=== PATIENT | female | born 1995 | race Hispanic/Latino ===

== ENCOUNTER 2017-06-26 14:12 | Emergency (ER) | payer BC ==
[~2017-06-26] VITALS: Ht 162.6 cm; Wt 127.0 kg
[2017-06-26] MEDS ORDERED: PROVERA2.5 MG PO (14:36)
[2017-06-26] MEDS ORDERED: ROBAXIN-750750 MG PO (17:07)
== END 2017-06-26 17:20 | disposition home or self-care (01) ==
LOC: ED 14:12
DX: R10.32 Left lower quadrant pain (principal); Z79.899 Other long term (current) drug therapy; Z90.2 Acquired absence of lung [part of]
CPT/HCPCS: 76830; 76856; 80053; 81001; 84703; 85025; 99284

== ENCOUNTER 2022-10-03 15:06 | Emergency (ER) | payer OTHER ==
[~2022-10-03] VITALS: Ht 162.6 cm; Wt 98.4 kg
[~2022-10-03 15:06] MED LIST: ADVIL200 MG PO; PROVERA2.5 MG PO; ROBAXIN-750750 MG PO
[2022-10-03] MEDS ORDERED: CEPHALEXIN500 MG PO (15:19)
[2022-10-03] MEDS ORDERED: PENICILLIN V P500 MG PO (15:41)
== END 2022-10-03 15:56 | disposition home or self-care (01) ==
LOC: ED 15:06
DX: O99.612 Diseases of the digestive system complicating pregnancy, second trimester (principal); K04.7 Periapical abscess without sinus; Z3A.20 20 weeks gestation of pregnancy
CPT/HCPCS: 99282

== ENCOUNTER 2022-10-04 05:47 | Emergency (ER) | payer OTHER ==
[~2022-10-04] VITALS: Ht 162.6 cm; Wt 102.2 kg
[~2022-10-04 05:47] MED LIST changes: +CEPHALEXIN500 MG PO; +PENICILLIN V P500 MG PO
--- OUTSIDE RECORDS SUMMARY | 2022-10-04 05:56 | XMS ---
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 D[facility]a has no Care Guidelines for this patient. [place] VISIT COUNT (12 MO.) 1 [facility] 2 [facility] TOTAL 3 NOTE: Visits indicate total known visits. ED/UCC VISIT TRACKING (12 MO.) [facility]2022 05[facility] COMPLAINT: - N/V AND COLD 10/03/2022 15:07 [facility] [place] TYPE: Emergency COMPLAINT: - DENTAL PROBLEM 05/17/2022 21:45 [facility] TYPE: Emergency DIAGNOSES: 33346. miscarriage - 7wks 30729. Anemia, unspecified 15585. Pelvic and perineal pain 47130. Urinary tract infection, site not specified 61786. Abnormal uterine and vaginal bleeding, unspecified 15077. Complete or unspecified spontaneous without complication 39783. Hematuria, unspecified INPATIENT VISIT TRACKING (12 MO.) No inpatient visits to display in this time frame [id number]
== END 2022-10-04 12:40 | disposition home or self-care (01) ==
LOC: ED 05:47
DX: O99.012 Anemia complicating pregnancy, second trimester (principal); R50.9 Fever, unspecified; Z3A.20 20 weeks gestation of pregnancy; Z20.822 Contact with and (suspected) exposure to COVID-19; Z79.899 Other long term (current) drug therapy
CPT/HCPCS: 36415; 80053; 81003; 83605; 83690; 85025; 85060; 87502; 96361; 96365; 96366; 96375; 99284-25; A9270; C9803; J0696; J2405; J7030; Q0138; U0003

== ENCOUNTER 2023-01-16 22:43 | Inpatient (IN) | payer OTHER ==
--- OUTSIDE RECORDS SUMMARY | ~2023-01-16 | XMS | Continuity of Care Document ---
Demographics + + + | Address | [address] | | | [place] [address] | + + + | Preferred Language | Unknown | + + + | Marital Status | | + + + | Nondenominational Affiliation | Unknown | + + + | Race | Unknown | + + + | Ethnic Group | or | + + + Author + + + | Author | [facility] | + + + | Organization | [facility] | + + + | Address | [address] | | | [place] [address] | + + + | Phone | | + + + Care Team Providers + + + + | Care Community Mental Health Worker Name | Role | Phone | + + + + Unavailable | Unavailable | + + + + Unavailable | Unavailable | + + + + Unavailable | Unavailable | + + + + Allergies and Intolerances + + + + + + | date | description | facility | reaction | severity | + + + + + + | (no date) | No Known | [facility] | (no reaction) | (no severity) | | | Allergies | | | | + + + + + + Encounters No information. Functional Status No information. Immunizations No information. Medications + + + + | date | description | facility | + + + + | 2022-10-03 00:00 | MEDROXYPROGESTERONE | [facility] | | | ACETATE | | + + + + | 2022-10-04 00:00 | MEDROXYPROGESTERONE | [facility] | | | ACETATE | | + + + + | 2023-01-16 00:00 | MEDROXYPROGESTERONE | [facility] | | | ACETATE | | + + + + | 2017-06-26 00:00 | METHOCARBAMOL | [facility] | + + + + | 2017-06-26 00:00 | METHOCARBAMOL | [facility] | + + + + | 2022-10-03 00:00 | CEPHALEXIN | [facility] | + + + + | 2022-10-04 00:00 | CEPHALEXIN | [facility] | + + + + | 2023-01-16 00:00 | CEPHALEXIN | [facility] | + + + + | 2022-10-03 00:00 | PENICILLIN V POTASSIUM | [facility] | + + + + | 2022-10-03 00:00 | PENICILLIN V POTASSIUM | [facility] | + + + + Problems + + + + | date | description | facility | + + + + | 2017-06-26 00:00 | Abdominal pain | [facility] | + + + + | 2017-06-26 00:00 | Abdominal pain | [facility] | + + + + | 2020-08-05 00:00 | Patient left without being | [facility] | | | seen | | + + + + | 2020-08-05 00:00 | Patient left without being | [facility] | | | seen | | + + + + | 2022-05-14 14:00 | THREATENED | [facility] | + + + + | 2022-05-14 14:00 | ENCNTR FOR SUPRVSN OF | [facility] | | | NORMAL FIRST PREG, | | + + + + | 2022-05-14 14:00 | LESS THAN 8 WEEKS | [facility] | | | GESTATION OF | | + + + + | 2022-08-12 14:48 | ENCNTR FOR SUPRVSN OF | [facility] | | | NORMAL FIRST PREG, FIRST | | | | TRIMESTER | | + + + + | 2022-08-12 14:48 | 8 WEEKS GESTATION OF | [facility] | | | | | + + + + | 2022-08-12 14:48 | 12 WEEKS GESTATION OF | [facility] | | | | | + + + + | 2022-10-03 00:00 | Infection of tooth | [facility] | + + + + | 2022-10-03 00:00 | Infection of tooth | [facility] | + + + + | 2022-10-03 15:07 | PERIAPICAL ABSCESS WITHOUT | [facility] | | | SINUS | | + + + + | 2022-10-03 15:07 | OTHER SPECIFIED DISORDERS | [facility] | | | OF TEETH AND SUPPORTING | | | | STRUCTURES | | + + + + | 2022-10-03 15:07 | DISEASES OF THE DGSTV SYS | [facility] | | | COMP , SECOND T | | + + + + | 2022-10-03 15:07 | 20 WEEKS GESTATION OF | [facility] | | | | | + + + + | 2022-10-04 00:00 | 20 or more weeks gestation | [facility] | | | of | | + + + + | 2022-10-04 00:00 | Anemia affecting | [facility] | | | | | + + + + | 2022-10-04 00:00 | Anemia affecting | [facility] | | | | | + + + + | 2022-10-04 00:00 | Fever | [facility] | + + + + | 2022-10-04 00:00 | Fever | [facility] | + + + + | 2022-10-04 00:00 | 20 or more weeks gestation | [facility] | | | of | | + + + + | 2022-10-04 05:48 | ANEMIA COMPLICATING | [facility] | | | , SECOND TRIMESTER | | | | | | + + + + | 2022-10-04 05:48 | LEFT LOWER QUADRANT PAIN | [facility] | + + + + | 2022-10-04 05:48 | FEVER, UNSPECIFIED | [facility] | + + + + | 2022-10-04 05:48 | 20 WEEKS GESTATION OF | [facility] | | | | | + + + + | 2022-10-04 05:48 | 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) | [facility] | | | DRUG THERAPY | | + + + + | 2022-12-23 09:31 | CALCULUS OF GALLBLADDER | [facility] | | | W/O CHOLECYSTITIS W/O OBST | | + + + + | 2022-12-23 09:31 | UNSPECIFIED HYDRONEPHROSIS | [facility] | | | | | + + + + | 2022-12-23 09:31 | FALSE LABOR BEFORE 37 | [facility] | | | COMPLETED WEEKS OF GEST, | | | | SEC | | + + + + | 2022-12-23 09:31 | DISEASES OF THE DGSTV SYS | [facility] | | | COMP , SECOND T | | + + + + | 2022-12-23 09:31 | RIGHT UPPER QUADRANT PAIN | [facility] | + + + + | 2022-12-23 09:31 | 14 WEEKS GESTATION OF | [facility] | | | | | + + + + | 2023-01-04 15:29 | GESTATIONAL DIABETES | [facility] | | | MELLITUS IN , UNSP | | | | CONTROL | | + + + + | 2023-01-04 15:29 | 33 WEEKS GESTATION OF | [facility] | | | | | + + + + | 2023-01-13 14:11 | GESTATIONAL DIABETES IN | [facility] | | | , INSUL | | + + + + | 2023-01-13 14:11 | GESTATIONAL DIABETES IN | [facility] | | | , INSULIN | | | | CONTROLLED | | + + + + | 2023-01-13 15:00 | GESTATIONAL DIABETES IN | [facility] | | | , INSUL | | + + + + | 2023-01-16 00:00 | Encounter for medical | [facility] | | | screening examination | | + + + + Procedures No information. Results/Labs +--------+--------+ +---------+--------+---------+ | test | date | facility | value | unit | notes | +--------+--------+ +---------+--------+---------+ + + | Result panel 1 | + + + + + + + + + | | 2022-10-04 | [facility] | YELLOW | (missing) | (missing) | | (unavailable | [facility] | | | + + + + + + + + + | Result panel 2 | + + + + + + + + + | | 2022-10-04 | [facility] | SL CLOUDY | (missing) | (missing) | | (unavailable | [facility]07 [facility] | | | | + + + + + + + + + | Result panel 3 | + + + + + + + + + | | 2022-10-04 | [facility] | NEGATIVE | (missing) | (missing) | | (unavailable | [facility] | | | | + + + + + + + + + | Result panel 4 | + + + + + + + + + | | 2022-10-04 | [facility] | NEGATIVE | (missing) | (missing) | | (unavailable | [facility] | | | | + + + + + + + + + | Result panel 5 | + + + + + + + + + | | 2022-10-04 | [facility] | NEGATIVE | (missing) | (missing) | | (unavailable | [facility] | | | | + + + + + + + + + | Result panel 6 | + + + + + +---------+ + + | | 2022-10-04 | [facility] | 1.015 | (missing) | (missing) | | (unavailable | [facility] | | | | + + + +---------+ + + + + | Result panel 7 | + + + + + + + + + | | 2022-10-04 | [facility] | NEGATIVE | (missing) | (missing) | | (unavailable | [facility] | | | | + + + + + + + + + | Result panel 8 | + + + + + +-------+ + + | | 2022-10-04 | [facility] | 7.0 | (missing) | (missing) | | (unavailable | [facility] | | | | + + + +-------+ + + + + | Result panel 9 | + + + + + + + + + | | 2022-10-04 | [facility] | NEGATIVE | (missing) | (missing) | | (unavailable | [facility] | | | | + + + + + + + + + | Result panel 10 | + + + + + + + + + | | 2022-10-04 | [facility] | NORMAL | (missing) | (missing) | | (unavailable | [facility] | | | | + + + + + + + + + | Result panel 11 | + + + + + + + + + | | 2022-10-04 | [facility] | NEGATIVE | (missing) | (missing) | | (unavailable | [facility] | | | | + + + + + + + + + | Result panel 12 | + + + + + + + + + | | 2022-10-04 | [facility] | NEGATIVE | (missing) | (missing) | | (unavailable | [facility] | | | | + + + + + + + + + | Result panel 13 | + + + + + +-------+ + + | | 2022-10-04 | [facility] | 1.5 | (missing) | (missing) | | (unavailable | [facility]32:07 [facility] | | | | + + + +-------+ + + + + | Result panel 14 | + + + + + +--------+ + + | | 2022-10-04 | [facility] | 11.6 | (missing) | (missing) | | (unavailable | [facility]34[facility]07 [facility] | | | | + + + +--------+ + + + + | Result panel 15 | + + + + + +-------+ + + | | 2022-10-04 | [facility] | 246 | (missing) | (missing) | | (unavailable | [facility]34[facility]07 [facility] | | | | + + + +-------+ + + + + | Result panel 16 | + + + + + +--------+ + + | | 2022-10-04 | [facility] | 84.8 | (missing) | (missing) | | (unavailable | [facility]34[facility]07 [facility] | | | + + + +--------+ + + + + | Result panel 17 | + + + + + +-------+ + + | | 2022-10-04 | [facility] | 9.8 | (missing) | (missing) | | (unavailable | [facility] | | | | + + + +-------+ + + + + | Result panel 18 | + + + + + +-------+ + + | | 2022-10-04 | [facility] | 3.3 | (missing) | (missing) | | (unavailable | [facility] | | | | + + + +-------+ + + + + | Result panel 19 | + + + + + +-------+ + + | | 2022-10-04 | [facility] | 1.8 | (missing) | (missing) | | (unavailable | [facility] | | | | + + + +-------+ + + + + | Result panel 20 | + + + + + +-------+ + + | | 2022-10-04 | [facility] | 0.3 | (missing) | (missing) | | (unavailable | [facility] | | | | + + + +-------+ + + + + | Result panel 21 | + + + + + + + + + | | 2022-10-04 | [facility] | (missing) | (missing) | (missing) | | (unavailable | [facility]34[facility]07 [facility] | | | | + + + + + + + + + | Result panel 22 | + + + + + +------+---------+ + | | 2022-10-04 | [facility] | 95 | mg/dL | (missing) | | (unavailable | [facility] | | | | + + + +------+---------+ + + + | Result panel 23 | + + + + + +-----+---------+ + | | 2022-10-04 | [facility] | 8 | mg/dL | (missing) | | (unavailable | [facility]34[facility]07 [facility] | | | | + + + +-----+---------+ + + + | Result panel 24 | + + + + + +--------+ + + | | 2022-10-04 | [facility] | 4.54 | (missing) | (missing) | | (unavailable | [facility] | | | | + + + +--------+ + + + + | Result panel 25 | + + + + + +--------+---------+ + | | 2022-10-04 | [facility] | 0.57 | mg/dL | (missing) | | (unavailable [facility]07 [facility] | | | | + + + +--------+---------+ + + + | Result panel 26 | + + + + + +-------+ + + | | 2022-10-04 | [facility] | 126 | (missing) | (missing) | | (unavailable | [facility] | | | | + + + +-------+ + + + + | Result panel 27 | + + + + + +---------+ + + | | 2022-10-04 | [facility] | 14.03 | (missing) | (missing) | | (unavailable | [facility] | | | | + + + +---------+ + + + + | Result panel 28 | + + + + + +-------+ + + | | 2022-10-04 | [facility] | 135 | (missing) | (missing) | | (unavailable | [facility] | | | | + + + +-------+ + + + + | Result panel 29 | + + + + + +-------+ + + | | 2022-10-04 | [facility] | 3.8 | (missing) | (missing) | | (unavailable | [facility] | | | + + + +-------+ + + + + | Result panel 30 | + + + + + +------+ + + | | 2022-10-04 | [facility] | 99 | (missing) | (missing) | | (unavailable | [facility] | | | | + + + +------+ + + + + | Result panel 31 | + + + + + +------+ + + | | 2022-10-04 | [facility] | 26 | (missing) | (missing) | | (unavailable | [facility] | | | | + + + +------+ + + + + | Result panel 32 | + + + + + +--------+ + + | | 2022-10-04 | [facility] | 13.8 | (missing) | (missing) | | (unavailable | [facility] | | | + + + +--------+ + + + + | Result panel 33 | + + + + + +-------+---------+ + | | 2022-10-04 | [facility] | 8.4 | mg/dL | (missing) | | (unavailable | [facility] | | | + + + +-------+---------+ + + + | Result panel 34 | + + + + + +-------+ + + | | 2022-10-04 | [facility] | 7.3 | (missing) | (missing) | | (unavailable | [facility] | | | | + + + +-------+ + + + + | Result panel 35 | + + + + + +-------+ + + | | 2022-10-04 | [facility] | 8.9 | (missing) | (missing) | | (unavailable | [facility] | | | | + + + +-------+ + + + + | Result panel 36 | + + + + + +-------+ + + | | 2022-10-04 | [facility] | 2.8 | (missing) | (missing) | | (unavailable | [facility] | | | + + + +-------+ + + + + | Result panel 37 | + + + + + +-------+ + + | | 2022-10-04 | [facility] | 4.5 | (missing) | (missing) | | (unavailable | [facility] | | | + + + +-------+ + + + + | Result panel 38 | + + + + + +--------+ + + | | 2022-10-04 | [facility] | 0.62 | (missing) | (missing) | | (unavailable | [facility] | | | | + + + +--------+ + + + + | Result panel 39 | + + + + + +-------+ + + | | 2022-10-04 | [facility] | 0.3 | (missing) | (missing) | | (unavailable | [facility] | | | + + + +-------+ + + + + | Result panel 40 | + + + + + +------+ + + | | 2022-10-04 | [facility] | 16 | (missing) | (missing) | | (unavailable | [facility] | | | | + + + +------+ + + + + | Result panel 41 | + + + + + +------+ + + | | 2022-10-04 | [facility] | 16 | (missing) | (missing) | | (unavailable | [facility] | | | | + + + +------+ + + + + | Result panel 42 | + + + + + +------+ + + | | 2022-10-04 | [facility] | 56 | (missing) | (missing) | | (unavailable | [facility] | | | + + + +------+ + + + + | Result panel 43 | + + + + + +------+ + + | | 2022-10-04 | [facility] | 84 | (missing) | (missing) | | (unavailable | [facility] | | | + + + +------+ + + + + | Result panel 44 | + + + + + +--------+ + + | | 2022-10-04 | [facility] | 28.4 | (missing) | (missing) | | (unavailable | [facility] | | | + + + +--------+ + + + + | Result panel 45 | + + + + + +--------+ + + | | 2022-10-04 | [facility] | 62.7 | (missing) | (missing) | | (unavailable | [facility] | | | + + + +--------+ + + + + | Result panel 46 | + + + + + +--------+ + + | | 2022-10-04 | [facility] | 19.6 | (missing) | (missing) | | (unavailable | [facility] | | | + + + +--------+ + + + + | Result panel 47 | + + + + + +--------+ + + | | 2022-10-04 | [facility] | 31.3 | (missing) | (missing) | | (unavailable | [facility] | | | + + + +--------+ + + + + | Result panel 48 | + + + + + +--------+ + + | | 2022-10-04 | [facility] | 19.1 | (missing) | (missing) | | (unavailable | [facility] | | | | + + + +--------+ + + + + | Result panel 49 | + + + + + + + + + | | 2022-10-04 | [facility] | NEGATIVE | (missing) | (missing) | | (unavailable | [facility]45:07 [facility] | | | | + + + + + + + + + | Result panel 50 | + + + + + + + + + | | 2022-10-04 | [facility] | NEGATIVE | (missing) | (missing) | | (unavailable | [facility] | | | | + + + + + + + + + | Result panel 51 | + + + + + + + + + | | 2022-10-04 | [facility] | NEGATIVE | (missing) | (missing) | | (unavailable | [facility] | | | + + + + + + + + + | Result panel 52 | + + + + + + + + + | | 2022-10-04 | [facility] | NEGATIVE | (missing) | (missing) | | (unavailable | [facility] | | | | + + + + + + + Social History No information. Vital Signs + + + +---------+ | date | measurement | value | units | + + + +---------+ | 2022-10-03 00:00 | BMI | 37.2 | kg/m2 | + + + +---------+ | 2022-10-03 00:00 | BP_diastolic | 60 | mmHg | + + + +---------+ | 2022-10-03 00:00 | BP_systolic | 103 | mmHg | + + + +---------+ | 2022-10-03 00:00 | heart_rate | 88 | /min | + + + +---------+ | 2022-10-03 00:00 | height_metric | 162.56 | cm | + + + +---------+ | 2022-10-03 00:00 | height_standard | 64 | in | + + + +---------+ | 2022-10-03 00:00 | o2_saturation | 100 | % | + + + +---------+ | 2022-10-03 00:00 | respiration_rate | 18 | /min | + + + +---------+ | 2022-10-03 00:00 | temperature_metric | 37.22 | C | | | | | | + + + +---------+ | 2022-10-03 00:00 | | 99 | F | | | temperature_standar | | | | | d | | | + + + +---------+ | 2022-10-03 00:00 | weight_metric | 98.43 | kg | + + + +---------+ | 2022-10-03 00:00 | weight_standard | 217 | lb | + + + +---------+ | 2022-10-04 00:00 | BMI | 38.7 | kg/m2 | + + + +---------+ | 2022-10-04 00:00 | BP_diastolic | 78 | mmHg | + + + +---------+ | 2022-10-04 00:00 | BP_systolic | 112 | mmHg | + + + +---------+ | 2022-10-04 00:00 | heart_rate | 104 | /min | + + + +---------+ | 2022-10-04 00:00 | height_metric | 162.56 | cm | + + + +---------+ | 2022-10-04 00:00 | height_standard | 64 | in | + + + +---------+ | 2022-10-04 00:00 | o2_saturation | 100 | % | + + + +---------+ | 2022-10-04 00:00 | respiration_rate | 17 | /min | + + + +---------+ | 2022-10-04 00:00 | temperature_metric | 37.17 | C | | | | | | + + + +---------+ | 2022-10-04 00:00 | | 98.9 | F | | | temperature_standar | | | | | d | | | + + + +---------+ | 2022-10-04 00:00 | weight_metric | 102.2 | kg | + + + +---------+ | 2022-10-04 00:00 | weight_standard | 225.31 | lb | + + + +---------+ | 2023-01-16 00:00 | BMI | 45.3 | kg/m2 | + + + +---------+ | 2023-01-16 00:00 | BP_diastolic | 66 | mmHg | + + + +---------+ | 2023-01-16 00:00 | BP_systolic | 122 | mmHg | + + + +---------+ | 2023-01-16 00:00 | heart_rate | 136 | /min | + + + +---------+ | 2023-01-16 00:00 | height_metric | 162.56 | cm | + + + +---------+ | 2023-01-16 00:00 | height_standard | 64 | in | + + + +---------+ | 2023-01-16 00:00 | o2_saturation | 100 | % | + + + +---------+ | 2023-01-16 00:00 | respiration_rate | 20 | /min | + + + +---------+ | 2023-01-16 00:00 | temperature_metric | 37.17 | C | | | | | | + + + +---------+ | 2023-01-16 00:00 | | 98.9 | F | | | temperature_standar | | | | | d | | | + + + +---------+ | 2023-01-16 00:00 | weight_metric | 119.6 | kg | + + + +---------+ | 2023-01-16 00:00 | weight_standard | 263.67 | lb | + + + +---------+ | 2023-01-16 00:00 | weight_standard | 263.68 | lb | + + + +---------+"
--- NOTE | 2023-01-16 23:48 | NUR ---
COLLECTED COVID SAMPLE AND PERFORMED EKG
[2023-01-17 04:42] VITALS: BP 119/58
--- NOTE | 2023-01-17 13:19 | EKG ---
[facility] [address] [place], [place] [address] Signed Sinus tachycardia Otherwise normal ECG No previous ECGs available Confirmed by CAYETANO ARELLANO MD ([id number]) on 01/17/2023 1:19:24 PM Electronically Signed By: CAYETANO ARELLANO 01/17/23 1319 PATIENT NAME: JOSE JONES Electrocardiogram DATE OF : [birth year] PHYSICIAN: CAYETANO ARELLANO REPORT #: [id number] REPORT IS CONFIDENTIAL AND NOT TO BE RELEASED WITHOUT AUTHORIZATION
--- NOTE | 2023-01-18 18:57 | PR ---
[facility] [address] [place], [place] [address] Signed AP Progress Notes Datetime Report Generated by LISANDRO: 01/18/2023 18:57 Chief Complaint: Pyelonephritis HPI: Pt seen and examined. Doing well. Ambulating and tolerating diabetic diet. Blood sugars borderline control w/ diet alone. Pt w/ unconventional sleeping schedule and has a difficult time eating on a regular schedule. Pt reports she feels much better and is ready for discharge EGA: 35.0 PHYSICAL EXAM: [id number] General: Normal HEENT: Normal Neurologic: Normal Thyroid: Normal Cardiovascular: Normal Respiratory: Normal Breast: Not Done Back: Normal Abdomen: Normal Genitourinary Exam: Not Done Extremities: Normal DTRs: Normal Physical Exam Comments: No flank pain or uterine tenderness. Pt reports that she is feeling much better. Impression: IUP @ 35w1d Pyelonephritis GDM diet controlled Obesity Plan: Pt ready for discharge. Will give one additional dose of ceftriaxone priort to discharge as she will not be able to pickup her oral abx until tomorrow. Rx for Bactrim DS sent to pharmacy. Will complete 10 day course and then will resume nightly keflex prophylaxis. Continue regularly scheduled antepartum testing for GDM. F/U in 3 days w/ complete glucose logs. All questions answered in detail and to patient and partner's apparent satisfaction VITAL SIGNS: [id number] Vital Signs: Reviewed VS Notable Details: Last Tmax of 103.1 at 0855 on 01/17/23, maternal tachycardia EXAM: [id number] Dilatation: 0.0 Effacement: 0 *Electronically Signed* 01/18/23 KRISTEL FREDERICK) DO PATIENT NAME: JOSE JONES PROGRESS NOTE DATE OF : [birth year] PHYSICIAN: KRISTEL SUN DO (JD) RPT #: [id number] REPORT IS CONFIDENTIAL AND NOT TO BE RELEASED WITHOUT AUTHORIZATION [facility] [address] [place], [place] [address] Signed Station: -3 Contraction Comments: occasional to every 5-6 min MEMBRANES: [id number] FETUS A: [id number] FHR Baseline: 190 Variability: Moderate 6-25bpm Accelerations: 15X15 Deceleration: None FHR Category: Category II FHR Comments: No evidence of metabolic acidosis Gestation by US: 35.0 FETUS B: [id number] PROGRESS NOTES: [id number] Signing Physician: Kristel Sun DO Copies: ~ *Electronically Signed* 01/18/23 KRISTEL FREDERICK) DO PATIENT NAME: JOSE JONES PROGRESS NOTE DATE OF : 93 PHYSICIAN: KRISTEL SUN (JD) DO RPT #: [id number] REPORT IS CONFIDENTIAL AND NOT TO BE RELEASED WITHOUT AUTHORIZATION
== END 2023-01-18 20:00 | disposition home or self-care (01) | DRG 833 ==
LOC: FBCO 22:43 → FBC 01-17 01:53
PROVIDERS: ADMIT Obstetrics & Gynecology; ATTEND Obstetrics & Gynecology
DX: O23.03 Infections of kidney in pregnancy, third trimester (principal); O24.410 Gestational diabetes mellitus in pregnancy, diet controlled; O99.213 Obesity complicating pregnancy, third trimester; Z3A.35 35 weeks gestation of pregnancy; Z20.822 Contact with and (suspected) exposure to COVID-19
CPT/HCPCS: 36415; 59025; 76815; 81001; 85025; 87088; 87502; 93005; 93010; A9270; C9803; G0463; J0696; J2405; J7121; U0002

== ENCOUNTER 2023-02-05 11:48 | Inpatient (IN) | payer OTHER ==
[~2023-02-05] VITALS: Ht 162.6 cm; Wt 117.9 kg
--- OUTSIDE RECORDS SUMMARY | ~2023-02-05 | XMS | Continuity of Care Document ---
Demographics + + + | Address | [address] | | | [place] [address] | + + + | Preferred Language | Unknown | + + + | Marital Status | | + + + | Anabaptism Affiliation | Unknown | + + + | Race | Unknown | + + + | Ethnic Group | or | + + + Author + + + | Author | [employer] | + + + | Organization | [employer] | + + + | Address | [address] | | | [place] [address] | + + + | Phone | | + + + Care Team Providers + + + + | Care Repairer Recreational Vehicle Name | Role | Phone | + [...] + | (no date) | No Known Drug | [facility] | (no reaction) | (no severity) | | | Allergies | | | | + + + + + + Encounters No information. Functional Status No information. Immunizations No information. Medications + + + + | date | description | facility | + + + + | 2022-10-03 00:00 | MEDROXYPROGESTERONE | [facility] | | | ACETATE | | + + + + | 2022-10-04 00:00 | MEDROXYPROGESTERONE | [facility] | | | ACETATE | | + + + + | 2023-01-16 00:00 | MEDROXYPROGESTERONE | [facility] | | | ACETATE | | + + + + | 2023-01-18 00:00 | MEDROXYPROGESTERONE | [facility] | | | ACETATE | | + + + + | 2017-06-26 00:00 | METHOCARBAMOL | [facility] | + + + + | 2017-06-26 00:00 | METHOCARBAMOL | [facility] | + + + + | 2022-10-03 00:00 | CEPHALEXIN | [facility] | + + + + | 2022-10-04 00:00 | CEPHALEXIN | [facility] | + + + + | 2023-01-16 00:00 | CEPHALEXIN | [facility] | + + + + | 2023-01-18 00:00 | CEPHALEXIN | [facility] | + + + + | 2022-10-03 00:00 | PENICILLIN V POTASSIUM | [facility] | + + + + | 2022-10-03 00:00 | PENICILLIN V POTASSIUM | [facility] | + + + + Problems + + + + | date | description | facility | + + + + | 2017-06-26 00:00 | Abdominal pain | [facility] | + + + + | 2017-06-26 00:00 | Abdominal pain | [facility] | + + + + | 2020-08-05 00:00 | Patient left without being | [facility] | | | seen | | + + + + | 2020-08-05 00:00 | Patient left without being | [facility] | | | seen | | + [...] + | 2022-08-12 14:48 | ENCNTR FOR SHARON OF | [facility] | | | NORMAL [...] 2022-10-03 00:00 | Infection of tooth | [facility] | + + + + | 2022-10-03 00:00 | Infection of tooth | [facility] | + + + + | 2022-10-03 [...] | 20 or more weeks gestation | [facility] | | | of | | + + + + | 2022-10-04 00:00 | Anemia affecting | [facility] | | | | | + + + + | 2022-10-04 00:00 | Anemia affecting | [facility] | | | | | + + + + | 2022-10-04 00:00 | Fever | [facility] | + + + + | 2022-10-04 00:00 | Fever | [facility] | + + + + | 2022-10-04 00:00 | 20 or more weeks gestation | [facility] | | | of | | + [...] + + | 2022-10-04 05:48 | OTHER SHELTER (CURRENT) | [facility] | | | DRUG [...] 2023-01-16 00:00 | Encounter for medical | [facility] | | | screening examination | | + + + + | [...] 15 | + + + + + + [...] 18 | + + + + + +--------+ + + | | 2022-10-04 | [facility] | 28.4 | (missing) | (missing) | | (unavailable | [facility] | | | + + + +--------+ + + + + | Result panel 19 | + + + + + +--------+ + + | | 2022-10-04 | [facility] | 62.7 | (missing) | (missing) | | (unavailable | [facility] | | | | + + + +--------+ + + + + | Result panel 20 | + + + + + +--------+ + + | | 2022-10-04 | [facility] | 19.6 | (missing) | (missing) | | (unavailable | [facility] | | | | + + + +--------+ + + + + | Result panel 21 | + + + + + +--------+ + + | | 2022-10-04 | [facility] | 31.3 | (missing) | (missing) | | (unavailable | [facility] | | | | + + + +--------+ + + + + | Result panel 22 | + + + + + +--------+ + + | | 2022-10-04 | [facility] | 19.1 | (missing) | (missing) | | (unavailable | [facility] | | | | + + + +--------+ + + + + | Result panel 23 | + + + + + +-------+ + + | | 2022-10-04 | [facility] | 246 | (missing) | (missing) | | (unavailable | [facility] | | | | + + + +-------+ + + + + | Result panel 24 [...] 25 | + + + + + +-------+ + + | | 2022-10-04 | [facility] | 9.8 | (missing) | (missing) | | (unavailable | [facility] | | | | + + + +-------+ + + + + | Result panel 26 [...] 27 | + + + + + +-------+ [...] 29 | + + + + + +------+---------+ + | | 2022-10-04 | [facility] | 95 | mg/dL | (missing) | | (unavailable | [facility] | | | | + + + +------+---------+ + + + | Result panel 30 | + + + + + +-----+---------+ + | | 2022-10-04 | [facility] | 8 | mg/dL | (missing) | | (unavailable | [facility] | | | | + + + +-----+---------+ + + + | Result panel 31 | + + + + + +--------+---------+ + | | 2022-10-04 | [facility] | 0.57 | mg/dL | (missing) | | (unavailable | [facility] | | | | + + + +--------+---------+ + + + | Result panel 32 | + + + + + +-------+ + + | | 2022-10-04 | [facility] | 126 | (missing) | (missing) | | (unavailable | [facility] | | | | + + + +-------+ + + + + | Result panel 33 | + + + + + +---------+ + + | | 2022-10-04 | [facility] | 14.03 | (missing) | (missing) | | (unavailable | [facility] | | | | + + + +---------+ + + + + | Result panel 34 [...] 36 | + + + + + +------+ + + | | 2022-10-04 | [facility] | 99 | (missing) | (missing) | | (unavailable | [facility] | | | | + + + +------+ + + + + | Result panel 37 | + + + + + +------+ [...] 39 | + + + + + +-------+---------+ + | | 2022-10-04 | [facility] | 8.4 | mg/dL | (missing) | | (unavailable | [facility] | | | | + + + +-------+---------+ + + + | Result panel 40 | + + + + + +-------+ + + | | 2022-10-04 | [facility] | 7.3 | (missing) | (missing) | | (unavailable | [facility] | | | | + + + +-------+ + + + + | Result panel 41 | + + + + + +-------+ + + | | 2022-10-04 | [facility] | 2.8 | (missing) | (missing) | | (unavailable | [facility] | | | | + + + +-------+ + + + + | Result panel 42 | + + + + + +-------+ + + | | 2022-10-04 | [facility] | 4.5 | (missing) | (missing) | | (unavailable | [facility] | | | + + + +-------+ + + + + | Result panel 43 | + + + + + +--------+ + + | | 2022-10-04 | [facility] | 0.62 | (missing) | (missing) | | (unavailable | [facility] | | | | + + + +--------+ + + + + | Result panel 44 | + + + + + +-------+ + + | | 2022-10-04 | [facility] | 0.3 | (missing) | (missing) | | (unavailable | [facility] | | | + + + +-------+ + + + + | Result panel 45 | + + + + + +------+ + + | | 2022-10-04 | [facility] | 16 | (missing) | (missing) | | (unavailable | [facility] | | | + + + +------+ + + + + | Result panel 46 | + + + + + +------+ + + | | 2022-10-04 | [facility] | 16 | (missing) | (missing) | | (unavailable | [facility] | | | | + + + +------+ + + + + | Result panel 47 | + + + + + +------+ + + | | 2022-10-04 | [facility] | 56 | (missing) | (missing) | | (unavailable | [facility] | | | + + + +------+ + + + + | Result panel 48 | + + + + + +------+ [...] + + + + | Result panel 53 | + + + + + +--------+ + + | | 2023-01-16 | [facility] | 14.2 | (missing) | (missing) | | (unavailable | [facility] | | | + + + +--------+ + + + + | Result panel 54 | + + + + + +--------+ + + | | 2023-01-16 | [facility] | 78.4 | (missing) | (missing) | | (unavailable | [facility] | | | + + + +--------+ + + + + | Result panel 55 | + + + + + +--------+ + + | | 2023-01-16 | [facility] | 13.3 | (missing) | (missing) | | (unavailable | [facility] | | | + + + +--------+ + + + + | Result panel 56 | + + + + + +-------+ + + | | 2023-01-16 | [facility] | 6.7 | (missing) | (missing) | | (unavailable | [facility] | | | + + + +-------+ + + + + | Result panel 57 | + + + + + +-------+ + + | | 2023-01-16 | [facility] | 1.3 | (missing) | (missing) | | (unavailable | [facility] | | | + + + +-------+ + + + + | Result panel 58 | + + + + + +-------+ + + | | 2023-01-16 | [facility] | 0.3 | (missing) | (missing) | | (unavailable | [facility] | | | + + + +-------+ + + + + | Result panel 59 | + + + + + +--------+ + + | | 2023-01-16 | [facility] | 4.61 | (missing) | (missing) | | (unavailable | [facility] | | | + + + +--------+ + + + + | Result panel 60 | + + + + + +-------+ + + | | 2023-01-16 | [facility] | 9.7 | (missing) | (missing) | | (unavailable | [facility] | | | + + + +-------+ + + + + | Result panel 61 | + + + + + +--------+ + + | | 2023-01-16 | [facility] | 30.8 | (missing) | (missing) | | (unavailable | [facility] | | | + + + +--------+ + + + + | Result panel 62 | + + + + + +--------+ + + | | 2023-01-16 | [facility] | 66.7 | (missing) | (missing) | | (unavailable | [facility] | | | + + + +--------+ + + + + | Result panel 63 | + + + + + +--------+ + + | | 2023-01-16 | [facility] | 21.0 | (missing) | (missing) | | (unavailable | [facility] | | | + + + +--------+ + + + + | Result panel 64 | + + + + + +--------+ + + | | 2023-01-16 | [facility] | 31.5 | (missing) | (missing) | | (unavailable | [facility] | | | + + + +--------+ + + + + | Result panel 65 | + + + + + +--------+ + + | | 2023-01-16 | [facility] | 20.4 | (missing) | (missing) | | (unavailable | [facility] | | | + + + +--------+ + + + + | Result panel 66 | + + + + + +-------+ + + | | 2023-01-16 | [facility] | 228 | (missing) | (missing) | | (unavailable | [facility] | | | + + + +-------+ + + + + | Result panel 67 | + + + + + + + + + | | 2023-01-16 | [facility] | NEGATIVE | (missing) | (missing) | | (unavailable | [facility] | | | | + + + + + + + + + | Result panel 68 | + + + + + + + + + | | 2023-01-16 | [facility] | NEGATIVE | (missing) | (missing) | | (unavailable | [facility] | | | | + + + + + + + + + | Result panel 69 | + + + + + + + + + | | 2023-01-16 | [facility] | NEGATIVE | (missing) | (missing) | | (unavailable | [facility] | | | + + + + + + + + + | Result panel 70 | + + + + + + + + + | | 2023-01-16 | [facility] | NEGATIVE | (missing) | (missing) | | (unavailable | [facility] | | | + + + + + + + + + | Result panel 71 | + + + + + + + + + | | 2023-01-16 | [facility] | YELLOW | (missing) | (missing) | | (unavailable | [facility] | | | | + + + + + + + + + | Result panel 72 | + + + + + +---------+ + + | | 2023-01-16 | [facility] | CLEAR | (missing) | (missing) | | (unavailable | [facility] | | | | + + + +---------+ + + + + | Result panel 73 | + + + + + + + + + | | 2023-01-16 | [facility] | NEGATIVE | (missing) | (missing) | | (unavailable | [facility] | | | | + + + + + + + + + | Result panel 74 | + + + + + + + + + | | 2023-01-16 | [facility] | NEGATIVE | (missing) | (missing) | | (unavailable | [facility] | | | | + + + + + + + + + | Result panel 75 | + + + + + +---------+ + + | | 2023-01-16 | [facility] | TRACE | (missing) | (missing) | | (unavailable | [facility] | | | + + + +---------+ + + + + | Result panel 76 | + + + + + +---------+ + + | | 2023-01-16 | [facility] | 1.015 | (missing) | (missing) | | (unavailable | [facility] | | | + + + +---------+ + + + + | Result panel 77 | + + + + + + + + + | | 2023-01-16 | [facility] | TRACE-I | (missing) | (missing) | | (unavailable | [facility] | | | | + + + + + + + + + | Result panel 78 | + + + + + +-------+ + + | | 2023-01-16 | [facility] | 7.5 | (missing) | (missing) | | (unavailable | [facility] | | | + + + +-------+ + + + + | Result panel 79 | + + + + + + + + + | | 2023-01-16 | [facility] | NEGATIVE | (missing) | (missing) | | (unavailable | [facility] | | | + + + + + + + + + | Result panel 80 | + + + + + +-------+ + + | | 2023-01-16 | [facility] | 1.0 | (missing) | (missing) | | (unavailable | [facility] | | | + + + +-------+ + + + + | Result panel 81 | + + + + + + + + + | | 2023-01-16 | [facility] | NEGATIVE | (missing) | (missing) | | (unavailable | [facility] | | | + + + + + + + + + | Result panel 82 | + + + + + +---------+ + + | | 2023-01-16 | [facility] | SMALL | (missing) | (missing) | | (unavailable | [facility] | | | + + + +---------+ + + + + | Result panel 83 | + + + + + +-------+ + + | | 2023-01-16 | [facility] | 0-1 | (missing) | (missing) | | (unavailable | [facility] | | | + + + +-------+ + + + + | Result panel 84 | + + + + + +-------+ + + | | 2023-01-16 | [facility] | 2-3 | (missing) | (missing) | | (unavailable | [facility] | | | + + + +-------+ + + + + | Result panel 85 | + + + + + + + + + | | 2023-01-16 | [facility] | SQUAMOUS 1+ | (missing) | (missing) | | (unavailable | [facility] | | | + + + + + + + + + | Result panel 86 | + + + + + +------+ + + | | 2023-01-16 | [facility] | No | (missing) | (missing) | | (unavailable | [facility] | | | | + + + +------+ + + Social History No information. Vital [...] 263.68 | lb | + + + +---------+ | 2023-01-17 00:00 | BP_diastolic | 58 | mmHg | + + + +---------+ | 2023-01-17 00:00 | BP_systolic | 119 | mmHg | + + + +---------+ | 2023-01-17 00:00 | height_metric | 162.6 | cm | + + + +---------+ | 2023-01-17 00:00 | height_standard | 64.02 | in | + + + +---------+ | 2023-01-17 00:00 | temperature_metric | 38.33 | C | | | | | | + + + +---------+ | 2023-01-17 00:00 | | 101 | F | | | temperature_standar | | | | | d | | | + + + +---------+"
[2023-02-09 06:40] LABS: HEMATOCRIT 32.8 % (35.0-50.0); HEMOGLOBIN 10.4 g/dL (12.0-18.0); MCH 20.6 (27-36); MCHC 31.7 g/dl (30-36); MCV 65.1 fl (81-99); RBC 5.04 M/ul (4.3-5.7); RDW 20.1 (10.5-15.0)
[2023-02-09 06:46] LABS: AMPHETAMINES, UR NEGATIVE (NEGATIVE); BARBITURATES, UR NEGATIVE (NEGATIVE); BENZODIAZEPINES, UR NEGATIVE (NEGATIVE); BUPRENORPHINE,UR NEGATIVE (NEGATIVE); COCAINE, UR NEGATIVE (NEGATIVE); MARIJUANA (THC), UR NEGATIVE (NEGATIVE); MDMA, UR NEGATIVE (NEGATIVE); METHADONE, UR NEGATIVE (NEGATIVE); METHAMPHETAMINE, UR NEGATIVE (NEGATIVE); OPIATES, UR NEGATIVE (NEGATIVE); OXYCODONE, UR NEGATIVE (NEGATIVE); PHENCYCLIDINE, UR NEGATIVE (NEGATIVE); TRICYCLIC ANTIDEPRESSANT, UR NEGATIVE (NEGATIVE)
[2023-02-09 07:18] LABS: ABO O; ANTIBODY SCREEN NEGATIVE; RH POSITIVE
[2023-02-09 07:29] VITALS: BP 106/57
--- NOTE | 2023-02-09 10:04 | NUR ---
02/09/23 100 Rosa Brar 0942- PT ARRIVES TO RM 104 IN FBC FROM [place] A&O X4. PT REPORTS NO PAIN OR NAUSEA AT THIS TIME AND RESPIRATIONS ARE EVEN AND UNLABORED, NO SIGNS OF DISTRESS. PT ON SATS >90% PER CONT PULSE OX. DRAPERY ESTIMATOR AND AT BEDSIDE AT THIS TIME. SCD'S IN PLACE. MADISON DRAINING TO GRAVITY. IV SITE ON RFA INFUSING FLUIDS DIRECTED, SITE WNL.
[2023-02-09 10:09] VITALS: BP 122/61
[2023-02-10 05:24] LABS: HEMOGLOBIN 7.5 g/dL (12.0-18.0)
[2023-02-10 05:25] LABS: HEMATOCRIT 24.1 % (35.0-50.0); MCH 20.3 (27-36); MCV 65.4 fl (81-99); RBC 3.69 M/ul (4.3-5.7); RDW 20.1 (10.5-15.0)
--- NOTE | 2023-02-10 09:01 | PR ---
[facility] [address] [place], [place] [address] Signed PP Progress Notes Datetime Report Generated by CPN: 02/10/2023 09:01 SUBJECTIVE: [id number] Pain: Within Normal Limits Nausea/Vomiting: Denies Flatus: Yes Vital Signs: [id number] Vital Signs: Reviewed; Within Normal Limits EXAM: Ongoing Cardiovascular: Normal Respiratory: Normal Abdomen/Uterus: Abnormal Lochia: Normal Vulva/Perineum: Not Done Breasts: Not Done CVA Tenderness: Not Done Extremities: Normal Incision: Normal Progress: Abnormal Exam Comments: Abdomen with active BS. Fundus firm, NT @ U-1. H/H 7.5/24.1, MCV 65.4, WBC 12.5, plat 202k IMPRESSION/PLAN/PROCEDURES: [id number] Impression: Normal Progression; Difficulties Other Impression: anemia Plan: Consult Other Plans: IV iron infusion today Other Procedures: iron infusion Progress Notes: Doing well. Ambulating without difficulty though quite anemic. Will give iron infusion today. Signing Physician: Chen Hernández MD Copies: ~ *Electronically Signed* 02/10/23900 CHEN HERNÁNDEZ MD PATIENT NAME: JOSE JONES PROGRESS NOTE DATE OF : [birth year] PHYSICIAN: CHEN HERNÁNDEZ MD RPT #: [id number] REPORT IS CONFIDENTIAL AND NOT TO BE RELEASED WITHOUT AUTHORIZATION
--- NOTE | 2023-02-10 12:35 | NUR ---
1040 - PT IN CHAIR WITH BABY. MALE SUPPORT PERSON ON COUCH. SUPPORT PERSON DID NOT SPEAK OR ENGAGE IN CONVERSATION. BABY RESTING CONTENTEDLY IN PT'S ARMS. DENIED NEEDS. CONSENTED TO PRAYER. PRAYED FOR GOOD BEGINNINGS AND ABIDING PEACE.
--- NOTE | 2023-02-11 07:54 | PR ---
[facility] [address] [place], [place] [address] Signed PP Progress Notes Datetime Report Generated by CPN: 02/11/2023 07:54 SUBJECTIVE: [id number] Pain: Within Normal Limits Nausea/Vomiting: Denies Flatus: Yes Bowel Movement: Yes Vital Signs: [id number] Vital Signs: Reviewed; Within Normal Limits EXAM: Ongoing Cardiovascular: Not Done Respiratory: Not Done Abdomen/Uterus: Abnormal Lochia: Normal Vulva/Perineum: Not Done Breasts: Not Done CVA Tenderness: Not Done Extremities: Normal Incision: Normal Progress: Abnormal Exam Comments: Fundus firm, NT @ U-1. Incision clean and intact. IMPRESSION/PLAN/PROCEDURES: [id number] Impression: Normal Progression Other Impression: Anemia--iron infusion yesterday Plan: Remove Brittany; Discharge Other Plans: IV iron infusion today Other Procedures: iron infusion Progress Notes: Doing well. She is ready for D/C. Signing Physician: Chen Hernández MD Copies: ~ *Electronically Signed* 02/11/23 0754 CHEN HERNÁNDEZ MD PATIENT NAME: JOSE JONES PROGRESS NOTE DATE OF : 93 PHYSICIAN: CHEN HERNÁNDEZ MD RPT #: [id number] REPORT IS CONFIDENTIAL AND NOT TO BE RELEASED WITHOUT AUTHORIZATION
--- NOTE | 2023-02-12 11:46 | OR ---
[facility] [address] [place], [place] [address] Signed DATE OF OPERATION: 02/09/2023 SURGEON: Chen Hernández MD SUPPLY CHAIN BUSINESS ANALYST: Flor Orosco DO PREOPERATIVE DIAGNOSES: Term , insulin-dependent gestational diabetes, unstable lie, desire for primary section. POSTOPERATIVE DIAGNOSES: Term , insulin-dependent gestational diabetes, unstable lie, desire for primary section, delivered. PROCEDURE: Primary section with low segment transverse uterine incision. ANESTHESIA: Spinal. ESTIMATED BLOOD LOSS: 500 mL. DRAINS: Romero catheter. INDICATIONS AND FINDINGS: The patient is a 27-year-old female, 6, para 0, SAB 5, who was admitted at 38 and 1/2 weeks for primary section because of insulin-dependent gestational diabetes with marginal control as well as the unstable lie. The patient's baby has been in multiple positions, especially transverse, occasionally vertex. Ultrasound done today was oblique. She did not desire a version and did not desire to proceed with labor. She was counseled. She was taken to the operating room where she was delivered of a little boy via lower segment transverse uterine incision from the LOT position with Apgars of 9 and 9 and weight of 8 pounds 13 ounces. The uterus, tubes, ovaries, and placenta were normal. DESCRIPTION OF PROCEDURE: The patient was prepped and draped in the supine position. A Pfannenstiel skin incision Electronically Signed By: CHEN HERNÁNDEZ MD 02/12/23 1146 PATIENT NAME: JOSE JONES OPERATIVE REPORT DATE OF : [birth year] REPORT #: [id number] PHYSICIAN: CHEN HERNÁNDEZ MD PCP: NO PRIMARY CARE PHYSICIAN REPORT IS CONFIDENTIAL AND NOT TO BE RELEASED WITHOUT AUTHORIZATION [facility] [address] [place], [place] [address] Signed was made and carried down through the fascia. The incision was extended laterally. The inferior and superior fascial flaps were then created. The muscles were bluntly divided and the peritoneum opened sharply and the incision extended bluntly. The Logan retractor was then placed. The uterine incision was made at the upper aspect of the peritoneal reflection. The baby was delivered to the above findings and handed off to the pediatric staff in attendance. The placenta was removed manually. The uterus was explored with a lap tape assuring no remaining fragments. The edges of the incision were identified and the uterus was closed in 2 layers using 0 Monocryl. The first layer was a running locking stitch. The second was a vertical imbricating stitch. Bleeding points at the peritoneal edges were controlled with cautery. The abdomen was then irrigated, inspected and good hemostasis was noted. The retractor was removed and the peritoneum identified. The peritoneum was closed in a running suture of 3-0 Vicryl. The muscles were brought together with interrupted sutures of 0-Vicryl. Bleeding points were controlled with cautery. Several figure of 8 sutures were required on the superior fascial flap for hemostasis. The fascia was closed from each angle to the midline with a running suture of 0-Vicryl. The subcu space was irrigated and bleeding points were controlled with cautery. The deep space was closed with interrupted sutures of 3-0 Vicryl. Emeka was used in this layer as well because of the depth of the subcu. The skin was closed with antonio. All sponge and needle counts were correct. She tolerated the procedure well and was taken to the recovery room in good condition. Chen Hernández MD PJW/MODL /[id number] Copies: ~ Electronically Signed By: CHEN HERNÁNDEZ MD 02/12/23 1146 PATIENT NAME: JOSE JONES OPERATIVE REPORT DATE OF : [birth year] REPORT #: [id number] PHYSICIAN: CHEN HERNÁNDEZ MD PCP: NO PRIMARY CARE PHYSICIAN REPORT IS CONFIDENTIAL AND NOT TO BE RELEASED WITHOUT AUTHORIZATION
== END 2023-02-11 18:43 | disposition home or self-care (01) | DRG 787 ==
LOC: FBC 02-09 05:42
PROVIDERS: Obstetrics & Gynecology; ADMIT Obstetrics & Gynecology; ATTEND Obstetrics & Gynecology
PROC: 10D00Z1 Extraction of Products of Conception, Low, Open Approach (ICD-10-PCS; principal; 2023-02-09 07:30)
DX: O32.0XX0 Maternal care for unstable lie, not applicable or unspecified (principal); D62 Acute posthemorrhagic anemia; O90.81 Anemia of the puerperium; O24.429 Gestational diabetes mellitus in childbirth, unspecified control; Z37.0 Single live birth; Z3A.38 38 weeks gestation of pregnancy; Z67.40 Type O blood, Rh positive; Z79.4 Long term (current) use of insulin
CPT/HCPCS: 01961; 36415; 76942; 85027; 85060; 86850; 86900; 86901; A9270; J0690; J1100; J1650; J1885; J2274; J2300; J2371; J2590; J2704; J2795; J7121; Q0138

== ENCOUNTER 2023-04-08 08:21 | Emergency (ER) | payer OTHER ==
[~2023-04-08] VITALS: Ht 152.4 cm; Wt 117.4 kg
--- OUTSIDE RECORDS SUMMARY | ~2023-04-08 | XMS | Continuity of Care Document ---
Demographics + + + | Address | [address] | | | [place] [address] | + + + | Preferred Language | Unknown | + + + | Marital Status | | + + + | Restoration Affiliation | Unknown | + + + | Race | Unknown | + + + | Ethnic Group | or | + + + Author + + + | Author | [facility] | + + + | Organization | [facility] | + + + | Address | [address] | | | [place] [address] | + + + | Phone | | + + + Care Team Providers + + + + | Care Parking Lot Manager Name | Role | Phone | + + + + Unavailable | Unavailable | + + + + Allergies No information. Encounters No information. Functional Status No information. Immunizations No information. Medications No information. Problems + + + + | date | description | facility | + + + + | 2023-01-13 [...] | | + + + + | 2023-01-17 01:53 | INFECTIONS OF KIDNEY IN | [facility] | | | , THIRD TRIMESTER | | + + + + | 2023-01-17 01:53 | GESTATIONAL DIABETES | [facility] | | | MELLITUS IN , DIET | | | | C | | + + + + | 2023-01-17 01:53 | OBESITY COMPLICATING | [facility] | | | , THIRD TRIMESTER | | + + + + | 2023-01-17 01:53 | FEVER, UNSPECIFIED | [facility] | + + + + | 2023-01-17 01:53 | 35 WEEKS GESTATION OF | [facility] | | | | | + + + + | 2023-01-21 07:00 | GESTATIONAL DIABETES IN | [facility] | | | , INSUL | | + + + + | 2023-01-21 07:00 | GESTATIONAL DIABETES IN | [facility] | | | , INSULIN | | | | CONTROLLED | | + + + + | 2023-01-26 16:56 | GESTATIONAL DIABETES | [facility] | | | MELLITUS IN , UNSP | | | | CONTROL | | + + + + | 2023-01-26 16:56 | 36 WEEKS GESTATION OF | [facility] | | | | | + + + + | 2023-01-28 15:52 | GESTATIONAL DIABETES IN | [facility] | | | , INSUL | | + + + + | 2023-01-28 15:52 | GESTATIONAL DIABETES IN | [facility] | | | , INSULIN | | | | CONTROLLED | | + + + + | 2023-01-28 16:00 | GESTATIONAL DIABETES IN | [facility] | | | , INSUL | | + + + + | 2023-02-02 16:29 | GESTATIONAL DIABETES | [facility] | | | MELLITUS IN , UNSP | | | | CONTROL | | + + + + | 2023-02-04 16:07 | GESTATIONAL DIABETES IN | [facility] | | | , INSUL | | + + + + | 2023-02-04 16:07 | GESTATIONAL DIABETES IN | [facility] | | | , INSULIN | | | | CONTROLLED | | + + + + | 2023-02-04 17:00 | GESTATIONAL DIABETES IN | [facility] | | | , INSUL | | + + + + | 2023-02-09 05:42 | Acute posthemorrhagic | [facility] | | | anemia | | + + + + | 2023-02-09 05:42 | ANEMIA, UNSPECIFIED | [facility] | + + + + | 2023-02-09 05:42 | GESTATIONAL DIABETES IN | [facility] | | | , INSUL | | + + + + | 2023-02-09 05:42 | GESTATIONAL DIABETES | [facility] | | | MELLITUS IN CHILDBIRTH, | | | | UNSP CONTROL | | + + + + | 2023-02-09 05:42 | GESTATIONAL DIABETES | [facility] | | | MELLITUS IN CHILDBIRTH, | | | | UNSP | | + + + + | 2023-02-09 05:42 | MATERNAL CARE FOR UNSTABLE | [facility] | | | LIE, NOT APPLICABLE OR | | | | UNSP | | + + + + | 2023-02-09 05:42 | MATERNAL CARE FOR UNSTABLE | [facility] | | | LIE, NOT APPLICABLE OR | | + + + + | 2023-02-09 05:42 | POLYHYDRAMNIOS, THIRD | [facility] | | | TRIMESTER, NOT APPLICABLE | | | | OR | | + + + + | 2023-02-09 05:42 | ANEMIA OF THE PUERPERIUM | [facility] | + + + + | 2023-02-09 05:42 | ANEMIA COMPLICATING | [facility] | | | CHILDBIRTH | | + + + + | 2023-02-09 05:42 | OBESITY COMPLICATING | [facility] | | | , FIRST TR | | + + + + | 2023-02-09 05:42 | SINGLE LIVE | [facility] | + + + + | 2023-02-09 05:42 | 38 WEEKS GESTATION OF | [facility] | | | | | + + + + | 2023-02-09 05:42 | TYPE O BLOOD, RH POSITIVE | [facility] | + + + + | 2023-02-09 05:42 | 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 Results/Labs No information. Social History +--------+ + + | date | description | facility | +--------+ + + Vital Signs No information."
[2023-04-08 08:55] LABS: BILIRUBIN, URINE NEGATIVE (negative); BLOOD/HGB, URINE LARGE (Negative); KETONE, URINE NEGATIVE (Negative); LEUK ESTERASE, URINE TRACE (negative); NITRITE, URINE NEGATIVE (negative)
[2023-04-08 09:11] LABS: BACTERIA, URINE NONE SEEN /hpf (negative); CASTS, URINE NONE SEEN \\lpf; COLLECTION TYPE, URINE CLEAN CATCH; CRYSTALS, URINE NONE SEEN (0-1+); EPITHELIAL CELLS, URINE 0 /lpf (0-1+); RED BLOOD CELLS, URINE >50 /hpf (0-5)
[2023-04-08 09:12] LABS: REFLEX CULTURE, URINE No (No)
[2023-04-08 09:26] LABS: BASOPHILS 0.7 % (0-2); EOSINOPHILS 3.8 % (0-6); HEMATOCRIT 38.8 % (35.0-50.0); HEMOGLOBIN 12.8 g/dL (12.0-18.0); LYMPHOCYTES 32.7 % (24-44); MCH 23.7 (27-36); MCV 71.8 fl (81-99); MONOCYTES 7.4 % (0-12); NEUTROPHILS 55.4 % (39-80); PLATELET COUNT 289 K/uL (140-440); RBC 5.41 M/ul (4.3-5.7); RDW 24.8 (10.5-15.0)
[2023-04-08 09:40] LABS: ALBUMIN 3.7 g/dL (3.4-5.0); ALBUMIN/GLOBULIN RATIO 0.74 (1.1-2.4); ALKALINE PHOSPHATASE 85 U/L (46-116); ALT (SGPT) 28 U/L (14-59); ANION GAP 11.9 (7-21); AST (SGOT) 17 U/L (15-37); BILIRUBIN, TOTAL 0.3 ng/dL (0.2-1.0); BUN/CREATININE RATIO 41.17 (6.0-28.6); CALCIUM 9.5 mg/dL (8.5-10.1); CARBON DIOXIDE 29 mmol/L (21-32); CHLORIDE 101 mmol/L (98-107); CREATININE, SERUM 0.51 mg/dL (0.55-1.02); GLOMERULAR FILTRATION RATE,EST 130 mL/min (>60); POTASSIUM 3.9 mmol/L (3.5-5.1); PROTEIN, TOTAL 8.7 g/dL (6.4-8.2); UREA NITROGEN 21 mg/dL (7-18)
[2023-04-08 09:53] LABS: ABO O; ANTIBODY SCREEN NEGATIVE; RH POSITIVE
[2023-04-08 10:28] VITALS: BP 118/55
== END 2023-04-08 10:29 | disposition home or self-care (01) ==
LOC: ED 08:21
PROVIDERS: Internal Medicine
DX: N92.1 Excessive and frequent menstruation with irregular cycle (principal)
CPT/HCPCS: 36415; 76830; 76857; 80053; 81001; 84702; 85025; 85060; 86850; 86900; 86901; 99284-25

== ENCOUNTER 2024-08-17 23:33 | Emergency (ER) | payer OTHER ==
[~2024-08-17] VITALS: Ht 152.4 cm; Wt 112.0 kg
[2024-08-18 00:42] VITALS: BP 119/68
== END 2024-08-18 00:45 | disposition home or self-care (01) ==
LOC: ED 23:33
DX: S40.012A Contusion of left shoulder, initial encounter (principal); S50.02XA Contusion of left elbow, initial encounter; W18.30XA Fall on same level, unspecified, initial encounter
CPT/HCPCS: 73030; 73080; 99283

== ENCOUNTER 2025-01-02 05:01 | Emergency (ER) | payer OTHER ==
[~2025-01-02] VITALS: Ht 162.6 cm; Wt 114.0 kg
[2025-01-02] MEDS ORDERED: MORPHINE SULFATE 4 MG/ML VIAL IV ONE (05:15)
[2025-01-02] MEDS ORDERED: SODIUM CHLORIDE 0.9% 1,000 ML IV ONE (05:15)
[2025-01-02 05:24] LABS: BASOPHILS 0.7 % (0.1-1.2); EOSINOPHILS 2.5 % (0.7-5.8); LYMPHOCYTES 35.2 % (19.3-51.7); MCH 16.1 PG (25.6-32.2); MCHC 27.3 g/dL (32.2-35.5); MCV 59.1 fL (79.4-94.8); MONOCYTES 6.4 % (4.7-12.5); NEUTROPHILS 53.9 % (34.0-71.1); RBC 5.40 M/uL (3.93-5.22)
[2025-01-02 05:40] LABS: ALT (SGPT) 21.0 U/L (14-59); AST (SGOT) 11.0 U/L (15-37); GLOMERULAR FILTRATION RATE,EST 120.0 mL/min (>60); PROTEIN, TOTAL 8.2 g/dL (6.4-8.2); UREA NITROGEN 9.0 mg/dL (7-18)
[2025-01-02] MEDS ORDERED: SODIUM CHLORIDE 0.9% 1,000 ML IV PRN (06:15)
[2025-01-02] MEDS ORDERED: FERROUS SULFAT325 MG PO (07:04)
[2025-01-02] MEDS ORDERED: PRENATA CHEWAB1 EACH PO (07:04)
[2025-01-02] MEDS ORDERED: VITAMIN C500 M1 PO (07:04)
[2025-01-02] MEDS ORDERED: COLACE100 MG PO (07:04)
[2025-01-02 07:17] LABS: ABO O; ANTIBODY SCREEN NEGATIVE; RH POSITIVE
[2025-01-02 07:19] VITALS: BP 103/50
[2025-01-03 05:03] LABS: IRON BINDING CAPACITY TOTAL 465 ug/dL (240-450); IRON,SERUM OR PLASMA 11 ug/dL (28-170); TRANSFERRIN SATURATION 2 %sat (20-50)
[2025-01-03 13:36] LABS: LEAD, BLOOD (VENOUS) <2.0 ug/dL (<=4.9)
[2025-01-04 14:11] LABS: SMEAR REVIEW BLOOD SEE COMMENTS
== END 2025-01-02 07:20 | disposition home or self-care (01) ==
LOC: ED 05:01
PROVIDERS: Family Medicine
DX: O99.011 Anemia complicating pregnancy, first trimester (principal); D50.9 Iron deficiency anemia, unspecified; Z3A.00 Weeks of gestation of pregnancy not specified; Z32.01 Encounter for pregnancy test, result positive
CPT/HCPCS: 36415; 76801; 76817; 80053; 82728; 83550; 83655; 83690; 84702; 84703; 85025; 85060; 86850; 86900; 86901; 96374; 96375; 99284-25; J2270; J2405; J7030

== ENCOUNTER 2025-01-17 20:37 | Emergency (ER) | payer OTHER ==
[~2025-01-17] VITALS: Ht 162.6 cm; Wt 117.3 kg
[~2025-01-17 20:37] MED LIST changes: +COLACE100 MG PO; +FERROUS SULFAT325 MG PO; +PRENATA CHEWAB1 EACH PO; +VITAMIN C500 M1 PO
--- OUTSIDE RECORDS SUMMARY | 2025-01-17 20:44 | XMS ---
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 [facility] has no Care Guidelines for this patient. [facility]12 MO.) [facility] NOTE: Visits indicate total known visits. ED/C VISIT TRACKING (12 MO.) [facility] COMPLAINT: - ABDOMINAL PAIN 01/02/2025 05:02 [facility] [place] TYPE: Emergency COMPLAINT: - ABDOMINAL PAIN DIAGNOSES: - Anemia complicating , first trimester - Encounter for test, result positive - Iron deficiency anemia, unspecified - Left lower quadrant pain - Weeks of gestation of not specified 08/17/2024 23:35 [facility] [place] TYPE: Emergency COMPLAINT: - ARM PAIN DIAGNOSES: - Contusion of left elbow, initial encounter - Contusion of left shoulder, initial encounter - Fall on same level, unspecified, initial encounter - Pain in left shoulder INPATIENT VISIT TRACKING (12 MO.) No inpatient visits to display in this time frame [email or web address]
[2025-01-17 21:12] LABS: BLOOD/HGB, URINE TRACE-I (Negative); KETONE, URINE NEGATIVE (Negative); LEUK ESTERASE, URINE SMALL (negative); NITRITE, URINE NEGATIVE (negative)
[2025-01-17 21:17] LABS: EPITHELIAL CELLS, URINE SQUAMOUS 1+ /lpf (0-1+)
[2025-01-17 21:18] LABS: BACTERIA, URINE 4+ /hpf (negative); CASTS, URINE NONE SEEN \\lpf; CRYSTALS, URINE NONE SEEN (0-1+); REFLEX CULTURE, URINE Yes (No)
[2025-01-17] MEDS ORDERED: CEPHALEXIN500 M1 PO (21:41)
[2025-01-17] MEDS ORDERED: CEPHALEXIN MONOHYDRATE 500 MG HOME.PACK PO ONE (21:45)
[2025-01-17 21:50] VITALS: BP 112/67
== END 2025-01-17 21:50 | disposition home or self-care (01) ==
LOC: ED 20:37
PROVIDERS: Family Medicine
DX: O23.41 Unspecified infection of urinary tract in pregnancy, first trimester (principal); N39.0 Urinary tract infection, site not specified; Z3A.01 Less than 8 weeks gestation of pregnancy
CPT/HCPCS: 81001; 87088; 99284; A9270

== ENCOUNTER 2025-02-22 05:48 | Emergency (ER) | payer OTHER ==
[~2025-02-22] VITALS: Ht 162.6 cm; Wt 122.0 kg
[~2025-02-22 05:48] MED LIST changes: +CEPHALEXIN500 M1 PO
[2025-02-22 06:21] LABS: BLOOD/HGB, URINE NEGATIVE (Negative); KETONE, URINE NEGATIVE (Negative); LEUK ESTERASE, URINE NEGATIVE (negative); NITRITE, URINE NEGATIVE (negative)
[2025-02-22 06:30] LABS: BASOPHILS 0.5 % (0.1-1.2); EOSINOPHILS 3.4 % (0.7-5.8); LYMPHOCYTES 34.0 % (19.3-51.7); MCH 20.1 PG (25.6-32.2); MCHC 30.2 g/dL (32.2-35.5); MCV 66.4 fL (79.4-94.8); MONOCYTES 9.0 % (4.7-12.5); NEUTROPHILS 52.5 % (34.0-71.1); RBC 4.88 M/uL (3.93-5.22)
[2025-02-22] MEDS ORDERED: LACTATED RINGER'S 1,000 ML IV ONE (06:30)
[2025-02-22] MEDS ORDERED: PROMETHAZINE HCL 25 MG TAB PO ONE (06:30)
[2025-02-22 06:48] LABS: ALT (SGPT) 16.0 U/L (14-59); AST (SGOT) 17.0 U/L (15-37); GLOMERULAR FILTRATION RATE,EST 125.0 mL/min (>60); PROTEIN, TOTAL 7.3 g/dL (6.4-8.2); UREA NITROGEN 12.0 mg/dL (7-18)
[2025-02-22 08:12] VITALS: BP 116/71
== END 2025-02-22 08:12 | disposition home or self-care (01) ==
LOC: ED 05:48
PROVIDERS: Internal Medicine
DX: O99.891 Other specified diseases and conditions complicating pregnancy (principal); R10.2 Pelvic and perineal pain; O21.9 Vomiting of pregnancy, unspecified; Z3A.13 13 weeks gestation of pregnancy
CPT/HCPCS: 36415; 76801; 80053; 81003; 83690; 83735; 84702; 84703; 85025; 85060; 96360; 96361; 99284-25; J7121